=== PATIENT | male | born 1995 | race Caucasian/White ===

== ENCOUNTER 2017-12-11 22:14 | Emergency (ER) | payer OTHER ==
[2017-12-11 22:40] VITALS: BP 134/73; PULSE 75; TEMP 98; BMI 27.8
[2017-12-12] MEDS ORDERED: NAPROXEN 375 MG TABLET (FP) PO ONE (02:47)
--- NOTE | 2017-12-12 02:50 | PDOC ---
History of Present Illness - General Chief Complaint: Pain Stated Complaint: SWOLLEN HAND Time Seen by Provider: 12/12/17 02:37 - History of Present Illness Initial Comments: 12/12/17 04:21 The patient is a 22 year old right hand dominant male with no significant PMH who presents for evaluation of left middle finger pain. The patient reports that he slammed his finger on the ground earlier today with immediate pain prompting his presentation to the ED for evaluation. He reports limited ROM secondary to pain. He otherwise denies other injuries, numbness, tingling, or weakness in his extremity. Past History - Past Medical History Allergies/Adverse Reactions: Allergies Allergy/AdvReac Type Severity Reaction Status Date / Time No Known Allergies Allergy Verified 12/11/17 22:37 Home Medications: Ambulatory Orders Naproxen [Naprosyn -] 375 mg PO BID #20 tablet 12/12/17 COPD: No Other medical history: Pt denies - Suicide/Smoking/Psychosocial Hx Smoking History: Current every day smoker Have you smoked in the past 12 months: Yes Number of Cigarettes Smoked Daily: 10 Information on smoking cessation initiated: No Hx Alcohol Use: No Drug/Substance Use Hx: No Substance Use Type: None Review of Systems - Review of Systems Comments:: 12/12/17 04:23 Constitutional: No fevers, chills, fatigue, malaise HEENT: No Rhinorrhea, nasal congestion, visual changes Cardiovascular: No chest pain, syncope, palpitations, lightheadedness Respiratory: No Cough, SOB, Hemoptysis, Gastrointestinal: No Abdominal pain, Nausea, Vomiting, Constipation, Diarrhea, Melena Genitourinary: No Dysuria, Frequency, Urgency, Hesitancy, Hematuria, Flank pain Musculoskeletal: Left Middle Finger Pain. No Myalgia, arthralgia Skin: No rashes, itching, bruising, pallor Neurologic: No Headache, Dizziness, Numbness, Weakness, or Tingling Psychiatric: No Hallucinations. No SI or HI *Physical Exam - Vital Signs Last Vital Signs Temp Pulse Resp BP Pulse Ox 98.0 F 75 18 134/73 98 12/11/17 22:37 12/11/17 22:37 12/11/17 22:37 12/11/17 22:37 12/11/17 22:37 - Physical Exam Comments: 12/12/17 04:24 General Appearance: Nourished. No Apparent Distress HEENT: No Pharyngeal Erythema, Tonsillar Exudate, Tonsillar Erythema Neck: No Cervical Lymphadenopathy Respiratory/Chest: Lungs Clear, Normal Breath Sounds. No Crackles, Rales, Rhonchi, Wheezing Cardiovascular: Regular Rhythm, Regular Rate. No Murmur, Gallops, Rubs Gastrointestinal/Abdominal: Normal Bowel Sounds, Soft. No Guarding, Rebound, Tenderness Musculoskeletal: No CVA Tenderness Extremity: Limited ROM of the left 3rd digit's distal phalange secondary to pain. Edema noted to the middle phalange of the 3rd digit. Sensation to light touch and temperature intact distally. 2+ radial pulses bilaterally. Normal Capillary Refill Integumentary: Normal Color, Dry, Warm Neurologic: Fully Oriented, Alert, Normal Mood/Affect, Normal Response, ED Treatment Course - RADIOLOGY Radiology Studies Ordered: Category Date Time Status FINGER(S) LEFT [RAD] Stat Radiology 12/12/17 02:47 Ordered Medical Decision Making - Medical Decision Making 12/12/17 04:28 The patient is a 22 year old right hand dominant male with no significant PMH who presents for evaluation of left middle finger pain. Differential includes but is not limited to: Fracture, dislocation, contusion, ligamentous injury. Given the patient's history and physical exam we will obtain plain films of the patient's finger and treat him with naprosyn here in the ED. We will continue to monitor and reassess. 12/12/17 04:30 Plain films of the patient's finger demonstrates a non-displaced fracture of the middle phalange of the 3rd digit as preliminarily read by ER physician. We placed the patient's finger in a splint here in the ED. We are comfortable discharging the patient home at this time with orthopedic follow up. We discussed the results, plan, and return precautions with the patient who voiced understanding and is agreeable with the plan. *DC/Admit/Observation/Transfer Diagnosis at time of Disposition: Finger fracture, left Qualifiers: Encounter type: initial encounter Finger: middle finger Fracture type: closed Phalanx: middle Fracture alignment: nondisplaced Qualified Code(s): S62.653A - Nondisplaced fracture of middle phalanx of left middle finger, initial encounter for closed fracture - Discharge Dispostion Disposition: HOME Condition at time of disposition: Good Admit: No - Prescriptions Prescriptions: Naproxen [Naprosyn -] 375 mg PO BID #20 tablet - Referrals Referrals: Americo Phipps MD [Staff Physician] - - Patient Instructions Printed Discharge Instructions: DI for Finger Fracture Additional Instructions: Please return to the ER if you experience concerning or worsening symptoms including worsening pain or weakness. You X-ray showed a fracture of your finger. We have place your finger in a splint that you should continue to wear until you follow up with our brake specialist. We have sent a prescription for naprosyn to your pharmacy that you may take twice a day to help manage your pain. It is extremely important that you call to schedule a follow up appointment with our brake specialist Dr. Phipps within the next 1-2 days to discuss further management of your symptoms. - Post Discharge Activity Forms/Work/School Notes: Back to Work
--- NOTE | 2017-12-12 03:37 | PDOC ---
Attending Attestation - Resident Resident Name: Sergio Armando - ED Attending Attestation I have performed the following: I have examined & evaluated the patient, The case was reviewed & discussed with the resident, I agree w/resident's findings & plan, Exceptions are as noted - HPI HPI: 12/12/17 03:35 pain to left 3rd finger after slamming his finger on the floor. Pt right hand dominant - Physicial Exam PE: 12/12/17 03:36 Physical Exam General Appearance: Yes: Appropriately Dressed. No: Apparent Distress, Intoxicated HEENT: positive: EOMI, BETTE, Normal ENT Inspection, Normal Voice, TMs Normal, Pharynx Normal. negative: Pale Conjunctivae, Photophobia, Scleral Icterus (R), Scleral Icterus (L) Neck: positive: Trachea midline, Normal Thyroid, Supple. negative: Tender, Rigid, Carotid bruit, Stridor, Lymphadenopathy (R), Lymphadenopathy (L), Thyromegaly Respiratory/Chest: positive: Lungs Clear, Normal Breath Sounds. negative: Chest Tender, Respiratory Distress, Accessory Muscle Use, Labored Respiration, RES, Crackles, Rales, Rhonchi, Stridor, Wheezing, Dullness Cardiovascular: positive: Regular Rhythm, Regular Rate, S1, S2. negative: Edema , JVD, Murmur, Bradycardia, Tachycardia Vascular Pulses: Dorsalis-Pedis (R): 2+, Doralis-Pedis (L): 2+ Gastrointestinal/Abdominal: positive: Normal Bowel Sounds, Flat, Soft. negative : Tender, Organomegaly, Pulsatile Mass, Increased Bowel Sounds, Decreased BS, Distended, Guarding, Rebound, Hernia, Hepatomegaly, Spleenomegaly Lymphatic: negative: Adenopathy, Tenderness Musculoskeletal: positive: Normal Inspection. negative: CVA Tenderness, Decreased Range of Motion Extremity: positive: Normal Capillary Refill, Normal Inspection, Normal Range of Motion,ecchymosis and swelling to left third finger Pelvis Stable. negative : Tender, Pedal Edema, Swelling, Erythema Integumentary: positive: Normal Color, Dry, Warm. negative: Cyanotic, Erythema , Jaundice, Rash Neurologic: positive: narrow fabric calenderer II-XII NML intact, Fully Oriented, Alert, Normal Mood/ Affect, Motor Strength 5/5. negative: EOM Palsy, Facial Droop, Sensory Deficit <SinisterraHugh - Last Filed: 12/12/17 03:35> - HPI HPI: 12/12/17 05:14 Patient is a 22 year old male with no significant past medical history who presents to the ED with complaints of left middle digit pain that began prior to ED arrival. Patient reports attempting to catch his son when he slammed his left third digit onto the floor causing immediate pain. He reports pain did not subside over time, prompting him to come into the ED for further evaluation. Patient states he is right hand dominant. Denies chest pain, Sob. Denies nausea, vomiting. Denies fevers, chills. Denies weakness, numbness, tingles. Denies any other symptoms. Allergies: None Social history: Current smoker (10 cigarettes per day). No alcohol. No illicit drugs. Surgical history: None PMD: Not on staff. <Chun Biggs - Last Filed: 12/12/17 05:14>
== END 2017-12-12 04:35 | disposition home or self-care (01) ==
LOC: JER 22:14
PROC: 2W3KX1Z Immobilization of Left Finger using Splint (ICD-10-PCS; principal; 2017-12-11)
DX: S62.653A Nondisplaced fracture of middle phalanx of left middle finger, initial encounter for closed fracture (principal); W22.8XXA Striking against or struck by other objects, initial encounter; Y93.89 Activity, other specified; Y92.488 Other paved roadways as the place of occurrence of the external cause; Y99.8 Other external cause status; F17.210 Nicotine dependence, cigarettes, uncomplicated
CPT/HCPCS: 73140-TC-LT-FY; 99281-25